=== PATIENT | male | born 1995 | race Caucasian/White ===

== ENCOUNTER 2017-02-27 23:14 | Inpatient (IN) ==
[2017-02-27] MEDS ORDERED: INSULIN REGULAR DRIP 100 ML IV SCH (23:45)
[2017-02-27] MEDS ORDERED: SODIUM CHLORIDE 0.9% 1,000 ML IV ONE (23:57)
[2017-02-27] MEDS ORDERED: INSULIN REGULAR 100 UNIT/ML IV ONE (23:57)
[2017-02-27] MEDS ORDERED: DEXTROSE 50% 25 GM/50 ML VIAL IV PRN ×2 (23:57)
--- NOTE | 2017-02-28 00:01 | Emergency Department Note ---
Wilfredo Brink Brittany, am scribing for, and in the presence of, Lars Munguia MD 23:57. Ezra Brink Robert M, MD, personally performed the services described in this documentation, ascribed by Christie Villalobos in my presence, and it is both accurate and complete . Arrival - Arrival Chief Complaint: Non-Specific ED Nursing Triage Note: pt reports being on doxycycline for "sinus infection" states that he has felt bad and had been inable to eat all day, states that his novolog insulin pump "ran out of insulin tonight" reports glucose >600 at home. FSG >500 at time of triage. +nausea/vomiting. pt received 450 ml NS and 4mg Zofran in route. only pmhx dm Mode of Arrival: Stretcher Limitations: No Limitations Source: Patient, RN Notes Reviewed - History of Present Illness HPI Narrative: Patient is a 22 y/o white male presenting to the ED via EMS for further evaluation of persistent nausea and vomiting that began earlier today. Patient reports that he has been sick for about a week with a sinus infection. He was seen by his PCP and prescribed Doxycycline. He notes that he has not felt well today with a sharp decrease in appetite and nausea/vomiting. He states that he tried drinking some gatorade without success of holding it down. He still is very much nauseous and complains of bilateral lower extremity cramping. Patient has a history for IDDM and utilizes an insulin pump. He states that his pump ran out of insulin tonight. At home his recorded blood glucose level was greater than 600 mg/dL. Patient states that he has went into DKA once in the past. En route to the ED patient was given 450 mL NS and 4 mg Zofran. Patient has no further complaints. Allergies/Adverse Reactions: Allergies Allergy/AdvReac Type Severity Reaction Status Date / Time Amoxicillin Allergy Unknown/Unable Verified 02/27/17 23:20 to obtain Home Medications: Home Medications Medication Instructions Recorded Confirmed Type Insulin Aspart [NovoLOG] See Protocol SUBCUT DIRECTED 02/27/17 02/27/17 History Review of System - Review of System 12 point system: reviewed and no additional remarkable complaints except as stated - Review of System Constitutional: Absent: fever Gastrointestinal: Present: nausea, vomiting Genitourinary male: Absent: urgency, dysuria, frequency Musculoskeletal: Present: leg pain (BLE cramping). Absent: back pain Medical,Surgical,& Family Hx - Medical History Endocrine: History of: Diabetes Mellitus (IDDM) - Social History Smoking Status: Never smoker Frequency of Alcohol Use: Occasionally Type of Drug Use: None Exam Vital Signs: Vital Signs Temperature 99.3 F 02/27/17 23:14 Pulse Rate 104 H 02/27/17 23:14 Respiratory Rate 20 02/27/17 23:14 Blood Pressure 142/74 02/27/17 23:14 O2 Sat by Pulse Oximetry 96 02/27/17 23:14 - General General appearance: alert, in no apparent distress - Head Head exam: Present: atraumatic, normocephalic, normal inspection - Eye Eye exam: Present: normal appearance, PERRL, EOMI - ENT ENT exam: Present: normal exam, normal oropharynx - Neck Neck exam: Present: normal inspection, full ROM, trachea midline - Chest Chest inspection: Present: normal inspection, symmetric chest wall rise - Respiratory Respiratory exam: Present: normal lung sounds bilaterally. Absent: respiratory distress - Cardiovascular Cardiovascular exam: Present: normal rhythm, tachycardia, normal heart sounds. Absent: regular rate - Abdominal Exam Abdominal exam: Present: soft, normal bowel sounds. Absent: tenderness - Extremities Exam Extremities exam: Present: normal inspection - Back Exam Back exam: Present: normal inspection - Neurological Exam Neurological exam: Present: alert, oriented X3, CN II-XII intact. Absent: motor sensory deficit - Psychiatric Psychiatric exam: Present: normal affect, normal mood - Skin Skin exam: Present: warm, dry Course - Consultations Consultation #1: The hospitalists will evaluate and admit the patient. Time: 01:07 Results - Labs CBC & BMP: 02/27/17 23:45 02/27/17 23:45 Disposition Clinical Impression: Diabetic ketoacidosis, Insulin dependent diabetes mellitus Case discussed with: patient, patient's family Disposition: Still a Patient Condition: Stable Time of Disposition: 01:08
[2017-02-28 00:07] LABS: Basophils # 0.1 10*3/uL (0.0-0.2); Basophils % 0.3 % (0.0-0.8); Eosinophils % 0.1 % (0.00-10.9); Immature Granulocytes % 1.2 %; Immature Granulocytes Absolute 0.31 #; Lymphocytes # 1.3 10*3/uL (1.4-4.0); Mean Corpuscular HGB Conc 34.9 GM/DL (32-36); Mean Corpuscular Hemoglobin 32 PG (27-34); Mean Corpuscular Volume 92.7 FL (87-102); Mean Platelet Volume 10.3 FL (9.6-12.0); Monocytes % 7.6 % (1.7-12.7); Neutrophils # 23.1 10*3/uL (1.4-7.4); Neutrophils % 85.8 % (38.7-73.9); Platelet Count 290 T/CUMM (130-400); Red Blood Count 4.64 MC/CUMM (3.8-5.5); Red Cell Distribution Width 11.2 % (9.3-17.3); White Blood Count 26.9 T/CUMM (4-12)
[2017-02-28 00:22] LABS: Osmolality,Calculated 298.2 MOS/KG (273-304); Phosphorous 4.6 MG/DL (2.5-4.9)
[2017-02-28 00:26] LABS: Lymphocytes 4 % (20-55); Segmented Neutrophils 89 % (50-85); Total Cells Counted 100
[2017-02-28 00:27] LABS: Platelet Estimate Normal
[2017-02-28 01:08] LABS: ABG Base Excess -16.4 MMOL/L (-2.5-2.5); ABG Oxygen Saturation 68.3 % (95-100); ABG PCO2 32.9 MM HG (35-48); ABG PO2 44.2 MM HG (80-95); ABG TCO2 10.7 MMOL/L (23-27)
[2017-02-28] MEDS ORDERED: INSULIN REGULAR DRIP 100 ML IV ONE (01:08)
[2017-02-28 01:09] LABS: ABG PH 7.164 (7.35-7.45)
[2017-02-28] MEDS ORDERED: INSULIN REGULAR 100 UNIT/ML ONE (01:10)
[2017-02-28] MEDS ORDERED: LACTATED RINGERS 1,000 ML IV ONE (01:18)
[2017-02-28] MEDS ORDERED: SODIUM BICARB INJ 100 MEQ in STERILE WATER INJ 400 ML IV PRN (01:30)
[2017-02-28] MEDS ORDERED: POTASSIUM CHLORIDE RIDER 10 MEQ in PREMIX 1 EACH IV PRN (01:30)
[2017-02-28] MEDS ORDERED: DEXTROSE 50% 25 GM/50 ML VIAL IV PRN ×2 (01:30→14:18)
[2017-02-28] MEDS ORDERED: INSULIN REGULAR 100 UNIT/ML IV ONE (01:30)
[2017-02-28] MEDS ORDERED: MAGNESIUM SULF RIDER 2 GM in PREMIX 1 EACH IV PRN (01:30)
[2017-02-28] MEDS ORDERED: SODIUM PHOSPHATE INJ 18.1 MMOL in SODIUM CHLORIDE 0.9% 250 ML IV PRN (01:30)
[2017-02-28] MEDS ORDERED: MAGNESIUM SULF RIDER 4 GM in PREMIX 1 EACH IV PRN (01:30)
[2017-02-28] MEDS ORDERED: SODIUM CHLORIDE 0.9% 1,000 ML IV ONE (01:30)
--- NOTE | 2017-02-28 01:58 | Hospitalist History & Physical ---
Assessment and Plan (1) Dehydration Status: Acute Assessment and plan: - Received 3L IVF in ER, will continue fluids per DKA protocol/orderset Current Visit: Yes (2) Diabetic ketoacidosis Status: Acute Assessment and plan: - Admit to the Medical ICU for initiation of the DKA orderset/protocol. - Per protocol, pt will start an IV Insulin drip - Q4h BMP with orders to recheck labs earlier with any significant abnormalities in K+ or Mag++. Current Visit: Yes Qualifiers: Diabetes mellitus type: type 1 Diabetes mellitus complication detail: without coma Qualified Code(s): E10.10 - Type 1 diabetes mellitus with ketoacidosis without coma (3) Insulin dependent diabetes mellitus Status: Acute Assessment and plan: - Will have Diabetic education see patient - Repeat Hemoglobin A1c; patient reports his last A1c was ~9 Current Visit: Yes (4) Acute kidney injury Status: Acute Assessment and plan: - Serum Creatinine 1.6 on presentation to ER. Baseline is unknown. - Will monitor for improvement with IVF. Current Visit: Yes (5) Leukocytosis Status: Acute Assessment and plan: - WBC on admission 26.9 with complaint of recent treatment for sinus infection and productive cough. - Chest Xray is clear - Will check Blood Cultures; UA not suggestive of UTI Current Visit: Yes History of Present Illness Chief complaint: "Feel awful" History of present illness: Mr. Pierce is a 22 year old male with history of type 1 DM. The patient presents today complaining of "feeling awful" after his insulin pump ran out of insulin this afternoon. The patient reports that he was in class today when it occurred and was unable to get more insulin in time. He began feeling poor this afternoon and was noted to have FSG in excess of 500 on presentation to the ER and a subsequent ABG was 7.16/33/44. He reports that earlier this week he was treated for a sinus infection with Doxycycline, but is unsure if it has helped. He has had a cough that was productive of yellowish colored sputum. The patient does report low-grade fevers as well. He has not had any diarrhea, but does note that he has had significant urinary frequency over the past couple of days. The patient received 1L NS and 2L Ringers Lactate in the ER and was started on an insulin drip. He thinks that his most recent Hemoglobin A1C was ~9. He was in DKA once before, when he was first diagnosed with diabetes. He reports good compliance otherwise with his home insulin use. Home Medications Medication Instructions Recorded Confirmed Type Insulin Aspart [NovoLOG] See Protocol SUBCUT DIRECTED 02/27/17 02/27/17 History Allergies Allergy/AdvReac Type Severity Reaction Status Date / Time Amoxicillin Allergy Unknown/Unable Verified 02/27/17 23:20 to obtain Medical,Surgical,& Family Hx - Medical History Endocrine: History of: Diabetes Mellitus (IDDM) - Surgical History Additional Surgical History: No pertinent surgical history - Family History Family History: Reports;: Family Diabetes - Social History Smoking Status: Never smoker Frequency of Alcohol Use: Occasionally Type of Drug Use: None 12 point system: reviewed and no additional remarkable complaints except as stated Exam - Constitutional Vitals: Period Temp Pulse Resp BP Sys/Garcia Pulse Ox Last 24 Hr 99.3 F-99.3 F 104-104 18-20 142-142/74-74 96 General appearance: normal weight, no acute distress - Head Head exam: Present: normocephalic, atraumatic - Eye Eye exam: Present: EOMI Pupils: Present: ALBERTO - ENT ENT exam: Present: normal exam, normal external ear exam - Neck Neck exam: Present: normal inspection. Absent: lymphadenopathy, tenderness, thyromegaly - Respiratory Respiratory exam: Present: clear to auscultation bilaterally. Absent: accessory muscle use, decreased breath sounds, rales, rhonchi, stridor, wheezes - Cardiovascular Cardiovascular exam: Present: tachycardia. Absent: diastolic murmur, gallop, irregular rhythm, rubs, systolic murmur - GI/Abdominal GI/Abdominal exam: Present: hypoactive bowel sounds, soft. Absent: distended, mass, tenderness - Extremities Exam Extremities exam: Present: normal inspection, normal capillary refill. Absent: calf tenderness, edema - Neurological Exam Neurological exam: Present: alert, oriented X3 - Psychiatric Psychiatric exam: Present: normal affect, normal mood - Skin Skin exam: Present: normal color, warm, dry. Absent: cyanosis, rash Results - Labs CBC & BMP: 02/27/17 23:45 02/27/17 23:45 Lab Results: I have reviewed the past 24 hour labs - Diagnostic Findings Procedure: Chest x-ray: image reviewed by me, report reviewed by me
[2017-02-28 02:11] LABS: Apearance,Urine CLEAR (Clear); Bilirubin,Urine Negative (Negative); Blood, Urine Negative (Negative); Glucose,Urine (UA) >=500 mg/dL (Negative); Ketones,Urine 80 mg/dL (Negative); Mucus,Urine Occasional /LPF (Occasional); Nitrite,Urine Negative (Negative); Protein,Urine Negative; Urine Color Colorless (Yellow); Urine Specific Gravity 1.026 (1.001-1.035); Urine Urobilinogen < 2.0 EU/DL (0.2-1.0)
[2017-02-28] MEDS: SODIUM CHLORIDE 0.9% 1,000 ML IV SCH ×4 (03:24→07:10)
[2017-02-28 04:07] LABS: Allen Test Positive; Pt O2 Delivery Device Room Air
[2017-02-28 04:08] LABS: ABG Base Excess -12.8 MMOL/L (-2.5-2.5); ABG HCO3 14.7 MMOL/L (20-26); ABG Oxygen Saturation 98.5 % (95-100); ABG PCO2 27.1 MM HG (35-48); ABG TCO2 11.3 MMOL/L (23-27)
[2017-02-28 05:02] LABS: Basophils # 0.1 10*3/uL (0.0-0.2); Basophils % 0.3 % (0.0-0.8); Hematocrit 38.1 VOL% (42.0-52.0); Hemoglobin 13.2 GM/DL (14.0-18.0); Immature Granulocytes % 0.9 %; Immature Granulocytes Absolute 0.21 #; Lymphocytes # 1.7 10*3/uL (1.4-4.0); Lymphocytes % 7.1 % (21.2-54.2); Mean Corpuscular HGB Conc 34.6 GM/DL (32-36); Mean Corpuscular Hemoglobin 32 PG (27-34); Mean Corpuscular Volume 92.9 FL (87-102); Mean Platelet Volume 10.1 FL (9.6-12.0); Monocytes # 1.4 10*3/uL (0.11-0.8); Neutrophils # 20.3 10*3/uL (1.4-7.4); Neutrophils % 85.7 % (38.7-73.9); Platelet Count 267 T/CUMM (130-400); Red Cell Distribution Width 11.3 % (9.3-17.3); White Blood Count 23.7 T/CUMM (4-12)
[2017-02-28 05:30] LABS: Calcium 8.4 MG/DL (8.5-10.1); Osmolality,Calculated 291.5 MOS/KG (273-304); Potassium 4.7 MMOL/L (3.5-5.1)
[2017-02-28 05:32] LABS: Magnesium 2.4 MG/DL (1.8-2.4)
[2017-02-28 06:21] LABS: Band Neutrophils 1 % (0-10); Lymphocytes 5 % (20-55); Segmented Neutrophils 90 % (50-85); Total Cells Counted 100
[2017-02-28 06:22] LABS: Giant Platelets Few; Hypochromasia Slight; Platelet Estimate Adequate
[2017-02-28] MEDS: SODIUM CHLOR 0.45% KCL 20 MEQ 20 MEQ/1,000 ML BAG IV SCH ×2 (07:10→11:10)
--- NOTE | 2017-02-28 08:26 | XRay Report ---
History: Shortness of breath Date: 02/28/2017 Study: Chest x-ray AP portable Comparison exam: No previous The cardiomediastinal silhouette and pulmonary vasculature are unremarkable. The lungs and pleural spaces are clear. The osseous structures are unremarkable. Impression: Normal chest x-ray PROCEDURE INTERPRETED AT [facility] DEPARTMENT OF RADIOLOGY Final Report Signed by: Dr. Stella Barakat
[2017-02-28] MEDS ORDERED: INFLUENZA VIRUS VACCINE 0.5 ML SYRINGE IM ONE (09:00)
[2017-02-28] MEDS ORDERED: INSULIN LISPRO 100 UNIT/ML SUBCUT SCH (09:00)
[2017-02-28] MEDS: ENOXAPARIN 40 MG/0.4 ML SYRINGE SUBCUT SCH (09:17)
[2017-02-28] MEDS: DOXYCYCLINE HYCLATE 100 MG CAPSULE PO SCH ×2 (09:17→20:26)
[2017-02-28 10:51] LABS: Calcium 7.7 MG/DL (8.5-10.1); Osmolality,Calculated 283.4 MOS/KG (273-304); Potassium 4.1 MMOL/L (3.5-5.1)
--- NOTE | 2017-02-28 12:49 | Hospitalist Progress Note ---
Assessment and Plan (1) Diabetic ketoacidosis Status: Acute Assessment and plan: Resolved resume insulin pump Current Visit: Yes Qualifiers: Diabetes mellitus type: type 1 Diabetes mellitus complication detail: without coma Qualified Code(s): E10.10 - Type 1 diabetes mellitus with ketoacidosis without coma (2) Dehydration Status: Acute Assessment and plan: Continue one half normal saline 125 Current Visit: Yes (3) Acute kidney injury Status: Acute Assessment and plan: Resolving with hydration Current Visit: Yes (4) Leukocytosis Status: Acute Assessment and plan: Could be stress response continue to monitor Current Visit: Yes Hospitalist: Subjective Interval history: Patient ran out of his insulin, Now that his gap has closed, we refilled his insulin pump and instructed him to turn it back on. His wbc remain extremely high most likely due to stress response. Exam - Constitutional Vitals: Period Temp Pulse Resp BP Sys/Garcia Pulse Ox Last 24 Hr 96.7 F-99.4 F 78-106 13-21 96-142/44-74 95-98 Exam: Heart Rate-[RRR] Lungs-[CTAB] GI-[+bs soft, NT] Ext-[no edema] Neuro [Motor 5/5], [alert and oriented times 3] psych [normal mood and affect] General [no acute distress] Results - Labs CBC & BMP: 02/28/17 04:25 02/28/17 10:09 Lab Results: I have reviewed the past 24 hour labs Labs: UA negative for infection, blood cultures 2 pending - Diagnostic Findings Procedure: Chest x-ray: report reviewed by me (Negative)
[2017-02-28] MEDS: SODIUM CHLORIDE 0.45% 1,000 ML IV SCH ×2 (13:36→20:27)
[2017-02-28] MEDS ORDERED: GLUCAGON 1 MG VIAL IM PRN (14:18)
[2017-02-28] MEDS ORDERED: SODIUM CHLORIDE 0.45% 1,000 ML IV SCH (18:38)
[2017-03-01] MEDS: SODIUM CHLORIDE 0.45% 1,000 ML IV SCH (04:16)
[2017-03-01 05:44] LABS: Basophils # 0.1 10*3/uL (0.0-0.2); Basophils % 0.7 % (0.0-0.8); Eosinophils # 0.7 10*3/uL (0.0-0.87); Eosinophils % 7.7 % (0.00-10.9); Hematocrit 37.9 VOL% (42.0-52.0); Hemoglobin 13.1 GM/DL (14.0-18.0); Immature Granulocytes % 0.3 %; Immature Granulocytes Absolute 0.03 #; Lymphocytes # 2.2 10*3/uL (1.4-4.0); Lymphocytes % 24.8 % (21.2-54.2); Mean Corpuscular HGB Conc 34.6 GM/DL (32-36); Mean Corpuscular Hemoglobin 32 PG (27-34); Mean Corpuscular Volume 92.9 FL (87-102); Mean Platelet Volume 9.5 FL (9.6-12.0); Monocytes # 0.6 10*3/uL (0.11-0.8); Monocytes % 6.9 % (1.7-12.7); Neutrophils # 5.2 10*3/uL (1.4-7.4); Neutrophils % 59.6 % (38.7-73.9); Platelet Count 197 T/CUMM (130-400); Red Blood Count 4.08 MC/CUMM (3.8-5.5); Red Cell Distribution Width 11.6 % (9.3-17.3); White Blood Count 8.7 T/CUMM (4-12)
[2017-03-01 06:13] LABS: Osmolality,Calculated 283.1 MOS/KG (273-304); Potassium 3.7 MMOL/L (3.5-5.1)
[2017-03-01] MEDS: ENOXAPARIN 40 MG/0.4 ML SYRINGE SUBCUT SCH (09:23)
[2017-03-01] MEDS: DOXYCYCLINE HYCLATE 100 MG CAPSULE PO SCH (09:23)
--- NOTE | 2017-03-01 09:29 | Discharge Summary ---
Hospital Course - Hospital Course Hospital Course: Discharge diagnosis: 1. Type I DM with DKA The patient presented to the hospital and was found to be in diabetic ketoacidosis. He has been a type I diabetic since age 6, and has an insulin pump. He says that he ran out of insulin. During the hospitalization we refilled his pump. He was initially on IV insulin, but this was discontinued once his anion gap closed. He is tolerating breakfast now, and his metabolic parameters are stable. He is now ready for discharge. Medication reconciliation has been performed. ADA diet. Activity as tolerated. Follow-up with local physician over in [place]. This note was completed using [employer] voice recognition software. There may be toe puller errors as a result. Discharge Plan - Discharge Data Disposition: Disch To Home/Self Care Condition at Discharge: Stable Discharge Diet: advance to your usual diet Activity: resume usual activities as tolerated Hygiene: no restrictions Weight Bearing at Discharge: full weight bearing Driving: no restrictions - Discharge Medications Continue Doxycycline Hyclate Cap [Vibramycin Cap] 100 mg PO BID Insulin Aspart [NovoLOG] See Protocol SUBCUT DIRECTED - Follow Up or Referral - Forms/Instructions Exam - Constitutional Vitals: Period Temp Pulse Resp BP Sys/Garcia Pulse Ox Last 24 Hr 96.7 F-98.6 F 54-97 12-22 96-127/44-87 96-98 Vital signs are noted above. Heart is regular with no murmur. Lungs are clear with no rales or wheezes. He is awake and alert Discharge Results Procedures and tests throughout hospitalization: Pending Orders 02/27/17 23:57 Urinalysis Stat 02/28/17 MRSA Screen Routine 02/28/17 01:26 Blood Culture Stat 03/02/17 04:00 BMP [Basic Metabolic Panel] IN AM Comp Blood Count Auto Diff IN AM 03/03/17 04:00 BMP [Basic Metabolic Panel] IN AM Comp Blood Count Auto Diff IN AM Labs on day of discharge: Labs from last 24 hours 03/01/17 03/01/17 03/01/17 08:50 08:24 05:24 WBC RBC Hgb Hct MCV MCH MCHC RDW Plt Count MPV Neut % (Auto) Lymph % (Auto) Luna % (Auto) Eos % (Auto) Baso % (Auto) Neut # (Auto) Lymph # (Auto) Luna # (Auto) Eos # (Auto) Baso # (Auto) Immature Gran % Nucleated RBC % Immature Gran # Nucleated RBCs # Immature Plt Fraction Sodium 142 Potassium 3.7 Chloride 108 H Carbon Dioxide 24 Anion Gap 13.7 BUN 15 Creatinine 1.00 GFR Calculation 117 BUN/Creatinine Ratio 15.00 Glucose 93 POC Glucose 130 H 50 L Calculated Osmolality 283.1 Calcium 8.0 L 03/01/17 03/01/17 03/01/17 05:24 03:59 01:18 WBC 8.7 D RBC 4.08 Hgb 13.1 L Hct 37.9 L MCV 92.9 MCH 32 MCHC 34.6 RDW 11.6 Plt Count 197 D MPV 9.5 L Neut % (Auto) 59.6 Lymph % (Auto) 24.8 Luna % (Auto) 6.9 Eos % (Auto) 7.7 Baso % (Auto) 0.7 Neut # (Auto) 5.2 Lymph # (Auto) 2.2 Luna # (Auto) 0.6 Eos # (Auto) 0.7 Baso # (Auto) 0.1 Immature Gran % 0.3 Nucleated RBC % 0.0 Immature Gran # 0.03 Nucleated RBCs # 0.00 Immature Plt Fraction 0.0 Sodium Potassium Chloride Carbon Dioxide Anion Gap BUN Creatinine GFR Calculation BUN/Creatinine Ratio Glucose POC Glucose 123 H 153 H Calculated Osmolality Calcium 02/28/17 02/28/17 02/28/17 22:05 20:30 19:12 WBC RBC Hgb Hct MCV MCH MCHC RDW Plt Count MPV Neut % (Auto) Lymph % (Auto) Luna % (Auto) Eos % (Auto) Baso % (Auto) Neut # (Auto) Lymph # (Auto) Luna # (Auto) Eos # (Auto) Baso # (Auto) Immature Gran % Nucleated RBC % Immature Gran # Nucleated RBCs # Immature Plt Fraction Sodium Potassium Chloride Carbon Dioxide Anion Gap BUN Creatinine GFR Calculation BUN/Creatinine Ratio Glucose POC Glucose 241 H 295 H 365 H Calculated Osmolality Calcium 02/28/17 02/28/17 02/28/17 16:23 13:07 12:07 WBC RBC Hgb Hct MCV MCH MCHC RDW Plt Count MPV Neut % (Auto) Lymph % (Auto) Luna % (Auto) Eos % (Auto) Baso % (Auto) Neut # (Auto) Lymph # (Auto) Luna # (Auto) Eos # (Auto) Baso # (Auto) Immature Gran % Nucleated RBC % Immature Gran # Nucleated RBCs # Immature Plt Fraction Sodium Potassium Chloride Carbon Dioxide Anion Gap BUN Creatinine GFR Calculation BUN/Creatinine Ratio Glucose POC Glucose 273 H 117 H 142 H Calculated Osmolality Calcium 02/28/17 02/28/17 02/28/17 11:05 10:09 10:04 WBC RBC Hgb Hct MCV MCH MCHC RDW Plt Count MPV Neut % (Auto) Lymph % (Auto) Luna % (Auto) Eos % (Auto) Baso % (Auto) Neut # (Auto) Lymph # (Auto) Luna # (Auto) Eos # (Auto) Baso # (Auto) Immature Gran % Nucleated RBC % Immature Gran # Nucleated RBCs # Immature Plt Fraction Sodium 140 Potassium 4.1 Chloride 110 H Carbon Dioxide 21 Anion Gap 13.1 BUN 15 Creatinine 1.10 GFR Calculation 104 BUN/Creatinine Ratio 13.00 Glucose 174 H POC Glucose 161 H 169 H Calculated Osmolality 283.4 Calcium 7.7 L 02/28/17 02/28/17 09:11 08:08 WBC RBC Hgb Hct MCV MCH MCHC RDW Plt Count MPV Neut % (Auto) Lymph % (Auto) Luna % (Auto) Eos % (Auto) Baso % (Auto) Neut # (Auto) Lymph # (Auto) Luna # (Auto) Eos # (Auto) Baso # (Auto) Immature Gran % Nucleated RBC % Immature Gran # Nucleated RBCs # Immature Plt Fraction Sodium Potassium Chloride Carbon Dioxide Anion Gap BUN Creatinine GFR Calculation BUN/Creatinine Ratio Glucose POC Glucose 204 H 221 H Calculated Osmolality Calcium Preliminary micro results at discharge 02/28/17 01:26 Blood Culture - Preliminary Blood No growth at 1 day 02/28/17 01:26 Blood Culture - Preliminary Blood No growth at 1 day DS: Provider Date of admission: 02/28/17 02:21 Primary care physician: . No PCP Attending physician on admission: Keegan Young MD Consults: 02/28/17 01:38 Consult to [facility], Educator [CONS] Routine Reason for Employee'S Representative: Diabetes Education Initial Insulin Education Consult Comment: INSULIN EDUCATION 02/28/17 03:41 Consult to [facility], Educator [CONS] Routine Reason for Employee'S Representative: Other Consult Comment: admit with dka Discharging clinician: Jesús Sims MD Expected date of discharge: 03/01/17
[2017-03-01 11:14] VITALS: BP 138/71
== END 2017-03-01 10:35 | disposition home or self-care (01) | DRG 638 ==
LOC: EDBD → EDUNIT# → N.ED 23:14 → SUATTDRO 02-28 02:21 → N.ICU 02-28 02:21
PROVIDERS: ADMIT Hospitalist; ATTEND Internal Medicine Geriatric Medicine

== ENCOUNTER 2019-09-24 13:31 | Observation (INO) ==
[2019-09-24] MEDS ORDERED: SODIUM CHLORIDE 0.9% 2,000 ML IV STA (14:01)
[2019-09-24] MEDS ORDERED: ONDANSETRON 4 MG/2 ML VIAL IV STA (14:01)
[2019-09-24 14:09] LABS: Basophils % 0.4 % (0.0-0.8); Eosinophils # 0.2 10*3/uL (0.0-0.87); Eosinophils % 1.6 % (0.00-10.9); Hematocrit 43.5 VOL% (42.0-52.0); Hemoglobin 14.8 GM/DL (14.0-18.0); Immature Granulocytes % 0.3 %; Immature Granulocytes Absolute 0.03 #; Lymphocytes # 1.3 10*3/uL (1.4-4.0); Lymphocytes % 12.9 % (21.2-54.2); Mean Corpuscular Volume 94.8 FL (87-102); Mean Platelet Volume 10.5 FL (9.6-12.0); Monocytes % 5.9 % (1.7-12.7); Neutrophils % 78.9 % (38.7-73.9); Platelet Count 215 T/CUMM (130-400); Red Blood Count 4.59 MC/CUMM (3.8-5.5); Red Cell Distribution Width 11.2 % (9.3-17.3); White Blood Count 10.2 T/CUMM (4-12)
[2019-09-24 14:34] LABS: Albumin 3.5 G/DL (3.4-5.0); Bilirubin,Total 1.1 MG/DL (0.2-1.0); Calcium 8.5 MG/DL (8.5-10.1); Osmolality,Calculated 284.5 MOS/KG (273-304)
[2019-09-24] MEDS ORDERED: ONDANSETRON 4 MG/2 ML VIAL IV PRN (16:19)
[2019-09-24] MEDS ORDERED: DEXTROSE 50% 25 GM/50 ML VIAL IV PRN (16:19)
[2019-09-24] MEDS ORDERED: DEXTROSE 10% 250 ML BAG IV PRN (16:19)
[2019-09-24] MEDS ORDERED: ACETAMINOPHEN 325 MG TABLET PO PRN (16:19)
[2019-09-24] MEDS ORDERED: GLUCAGON 1 MG VIAL IM PRN (16:19)
[2019-09-24] MEDS ORDERED: INSULIN REGULAR 100 UNIT/ML IV ONE (16:32)
[2019-09-24 17:59] LABS: Calcium 7.8 MG/DL (8.5-10.1); Osmolality,Calculated 281.7 MOS/KG (273-304)
[2019-09-24] MEDS: PANTOPRAZOLE 40 MG TABLET PO SCH (18:43)
[2019-09-24 20:20] LABS: Osmolality,Calculated 282.7 MOS/KG (273-304)
[2019-09-24] MEDS: SODIUM CHLOR 0.9% KCL 20 MEQ 20 MEQ/1,000 ML BAG IV SCH ×2 (20:45→21:28)
[2019-09-24] MEDS: INSULIN LISPRO 100 UNIT/ML SUBCUT SCH (21:34)
[2019-09-24 23:47] LABS: Calcium 8.1 MG/DL (8.5-10.1); Osmolality,Calculated 280.7 MOS/KG (273-304)
[2019-09-25] MEDS: INSULIN LISPRO 100 UNIT/ML SUBCUT SCH ×3 (01:36→09:22)
[2019-09-25 06:27] LABS: Basophils % 0.6 % (0.0-0.8); Eosinophils # 0.5 10*3/uL (0.0-0.87); Eosinophils % 6.8 % (0.00-10.9); Hematocrit 39.6 VOL% (42.0-52.0); Hemoglobin 13.4 GM/DL (14.0-18.0); Immature Granulocytes % 0.1 %; Immature Granulocytes Absolute 0.01 #; Lymphocytes # 2.4 10*3/uL (1.4-4.0); Lymphocytes % 35.5 % (21.2-54.2); Mean Corpuscular HGB Conc 33.8 GM/DL (32-36); Mean Corpuscular Volume 94.7 FL (87-102); Mean Platelet Volume 10.1 FL (9.6-12.0); Monocytes % 7.9 % (1.7-12.7); Neutrophils % 49.1 % (38.7-73.9); Platelet Count 196 T/CUMM (130-400); Red Blood Count 4.18 MC/CUMM (3.8-5.5); Red Cell Distribution Width 11.6 % (9.3-17.3); White Blood Count 6.8 T/CUMM (4-12)
[2019-09-25 06:53] LABS: Calcium 8.5 MG/DL (8.5-10.1); Osmolality,Calculated 279.4 MOS/KG (273-304)
[2019-09-25 08:35] VITALS: BP 115/67
[2019-09-25] MEDS ORDERED: INSULIN ASPART U SUBCUT SCH (09:00)
[2019-09-25] MEDS: PANTOPRAZOLE 40 MG TABLET PO SCH (09:22)
[2019-09-25] MEDS ORDERED: INSULIN LISPRO 100 UNIT/ML SUBCUT SCH (12:00)
== END 2019-09-25 11:55 | disposition home or self-care (01) ==
LOC: EDUNIT# → EDBD → N.EDINP 13:31 → N.ED 13:31 → N.EDINP 18:15 → N.3E 18:40
PROVIDERS: ADMIT Internal Medicine; ATTEND Internal Medicine